=== PATIENT | male | born 1995 | race Two or more races ===

== ENCOUNTER 2018-08-12 01:48 | Emergency (ER) | payer SELFPAY ==
[2018-08-12 01:54] VITALS: BMI 30.7
--- NOTE | 2018-08-12 02:18 | PDOC ---
History of Present Illness - General Chief Complaint: Pain Stated Complaint: DISLOCATED JAW Time Seen by Provider: 08/12/18 02:09 History Source: Patient Exam Limitations: No Limitations - History of Present Illness Initial Comments: 08/12/18 02:09 This is a 23 YOM with h/o many jaw dislocation episodes, who p/w jaw dislocation the same as his priors, which occurred just HAND [employer]IPPER while he was laughing very hard. His friends brought him to the ED. He notes 10 pain in both sides of his jaw, but otherwise denies any new symptoms. He denies f/c/n/v/ d/c, tooth pain, difficulty breathing, throat closing, numbness, tingling, weakness, or any other symptoms. Past History - Past Medical History Allergies/Adverse Reactions: Allergies Allergy/AdvReac Type Severity Reaction Status Date / Time No Known Allergies Allergy Verified 08/12/18 01:52 Home Medications: Ambulatory Orders NK [No Known Home Medication] 08/12/18 - Suicide/Smoking/Psychosocial Hx Smoking History: Never smoked Have you smoked in the past 12 months: No Information on smoking cessation initiated: No Hx Alcohol Use: No Drug/Substance Use Hx: No Review of Systems - Review of Systems Able to Perform ROS?: Yes Constitutional: No: Chills, Fever, Unexplained wgt Loss HEENTM: Yes: Other (jaw dislocation). No: Nose Congestion, Throat Pain Respiratory: No: Cough, Shortness of Breath Cardiac (ROS): No: Chest Pain, Palpitations ABD/GI: No: Constipated, Diarrhea, Nausea, Vomiting : No: Burning, Dysuria Musculoskeletal: No: Back Pain, Neck Pain Integumentary: No: Bruising, Rash Neurological: No: Headache, Numbness, Tingling, Weakness, Dizziness Endocrine: No: Unexplained Weight Gain, Unexplained Weight Loss *Physical Exam - Vital Signs Last Vital Signs Temp Pulse Resp BP Pulse Ox 97.6 F 107 H 16 132/80 99 08/12/18 01:52 08/12/18 01:52 08/12/18 01:52 08/12/18 01:52 08/12/18 01:52 08/12/18 02:19 GENERAL: nontoxic and well-appearing, nourished, A/Ox4, no acute distress, speaking in full sentences, answers questions appropriately HEENT: mandible dislocation, PERRLA, EOMI, moist mucous membranes, no posterior pharyngeal erythema, no tonsillar swelling or exudates, no cervical lymphadenopathy NECK: No midline ttp, no spinal stepoff or deformity, full ROM, supple CARDIOVASCULAR: Regular rate and rhythm, normal S1S2, MGR, radial and DP pulses 2+ and symmetric, capillary refill <2 seconds, extremities warm and well- perfused LUNGS/RESPIRATORY: No respiratory distress, normal and symmetric chest movements during respirations, lungs CTA bilaterally, equal breath sounds, no cyanosis, no nail clubbing GI/ABDOMEN: Normal symmetric appearance, soft, no tenderness to palpation, no midline pulsatile masses, no palpated organomegaly EXTREMITIES: distal pulses 2+, warm and well-perfused, no LE edema SKIN: Warm and dry, no pallor, no jaundice, no bruising, no rash, no skin breakdown, no cuts, no lesions NEUROLOGICAL: GCS 15, CN II-XII grossly intact, ambulating with normal gait, moving all extremities, 5/5 strength proximally and distally, no facial droop, no decreased sensation Procedures - Joint Reduction Left Pre-Procedure NV Exam: normal Conscious Sedation: No Reduction Attempts: 1 (mandible dislocation) Procedure: Other (classic intra-oral reduction) Complications: No Splint: No Immobilized: No Progress: Patient tolerated procedure well. Medical Decision Making - Medical Decision Making 08/12/18 02:24 Adult patient p/w jaw dislocation like all his prior jaw dislocations. Sustained while laughing too hard. Vital Signs Temperature 97.6 F 08/12/18 01:52 Pulse Rate 107 H 08/12/18 01:52 Respiratory Rate 16 08/12/18 01:52 Blood Pressure 132/80 08/12/18 01:52 O2 Sat by Pulse Oximetry (%) 99 08/12/18 01:52 Exam: As noted in Physical Exam section. W/U ordered: None TX ordered: None Jaw dislocation is reduced successfully, patient tolerated well. States teeth fit together normally after procedure. No complaints, wants to go home. DISCHARGE This patient has gotten significant relief of symptoms while in the ED. On last reassessment exam is benign. Workup is not concerning for emergency-level pathology at this time. This patient is appropriate for discharge with close outpatient follow up. They are comfortable with this plan and will follow up with their primary care provider in 1-3 days. Specific return precautions are discussed and they will come back to the ER if necessary. *DC/Admit/Observation/Transfer Diagnosis at time of Disposition: Jaw dislocation Qualifiers: Encounter type: initial encounter Qualified Code(s): S03.00XA - Dislocation of jaw, unspecified side, initial encounter - Discharge Dispostion Disposition: HOME Condition at time of disposition: Stable Decision to Admit order: No - Referrals Referrals: Nolan Quinn [Primary Care Provider] - - Patient Instructions Printed Discharge Instructions: DI for Jaw Dislocation Additional Instructions: YOU WERE SEEN IN THE ER FOR A JAW DISLOCATION LIKE YOUR PRIOR JAW DISLOCATIONS. WE DID AN EXAM, RELOCATED YOUR JAW, MADE SURE THAT YOUR JAW EXAM WAS NORMAL AFTERWARD. AFTER OUR ASSESSMENT, WE DO NOT BELIEVE YOU ARE HAVING A MEDICAL EMERGENCY AT THIS TIME, AND WE BELIEVE YOU ARE SAFE TO GO HOME. PLEASE FOLLOW UP WITH YOUR PRIMARY CARE PROVIDER IN 1-3 DAYS. CALL THEIR CLINIC, TELL THEM YOU WERE SEEN IN THE ER, AND TELL THEM YOU NEED A FOLLOW-UP. IF YOU HAVE ANY NEW OR WORSENING SYMPTOMS, PLEASE COME BACK TO THE ER AT ANY TIME (24 HOURS A DAY). IF YOU ARE HAVING SEVERE OR LIFE THREATENING SYMPTOMS, OR SYMPTOMS THAT MAKE IT UNSAFE TO DRIVE OR HAVE SOMEONE DRIVE YOU, PLEASE CALL 911. - Post Discharge Activity
--- NOTE | 2018-08-12 02:20 | PDOC ---
Attending Attestation - Resident Resident Name: Rachelle Lucas - ED Attending Attestation I have performed the following: I have examined & evaluated the patient, The case was reviewed & discussed with the resident, I agree w/resident's findings & plan, Exceptions are as noted - HPI HPI: 08/12/18 02:30 23y M hx of multiple jaw dislocations presents with jaw dislocation. pt states he was laughing and jaw dislocated no other symptoms he attempted to get his friend to relocate his jaw but he was unable to offered surgery by oral surgery inthe past but pt declined. on exam pt with dislocated jaw no distress, was reduced by dr. lucas with 1 attempt pt feeling improved will dc with pmd fu return precautions were discussed will have the pt fu with his oral surgeon - Physicial Exam PE: 08/16/18 16:21 see above - Medical Decision Making 08/16/18 16:21 see above
[2018-08-12 02:34] VITALS: BP 112/76; PULSE 86; TEMP 98.5
== END 2018-08-12 02:34 | disposition home or self-care (01) ==
LOC: JER 01:48
PROC: 0RSDXZZ Reposition Left Temporomandibular Joint, External Approach (ICD-10-PCS; principal; 2018-08-12)
DX: M26.69 Other specified disorders of temporomandibular joint (principal)
CPT/HCPCS: 99281-25